=== PATIENT | male | born 1990 | race Caucasian/White ===

== ENCOUNTER 2020-04-16 11:45 | Emergency (ER) | payer OTHER, SELFPAY ==
[2020-04-16 12:11] LABS: #Basophils 0.1 thou/uL (0.0-0.2); #Eosinphils 0.5 thou/uL (0.0-0.7); #Monocytes 0.4 thou/uL (0.11-0.59); #Neutrophils 4.2 thou/uL (1.40-6.50); %Basophils 1.8 % (0.0-1.0); %Eosinophils 7.4 % (0.0-10.0); %Lymphocytes 27.3 % (21.0-51.0); %Monocytes 5.6 % (0.0-10.0); %Neutrophils 57.8 % (42.0-75.0); Hemoglobin 14.4 g/dL (14.0-18.0); Mean Corpuscular HGB CONC 32.2 g/dL (32.0-36.0); Mean Corpuscular Hemoglobin 30.6 pg (27.0-31.0); Mean Platelet Volume 6.2 fL (7.4-10.4); Platelet Count 270 thou/uL (130-400); RBC Distribution Width 11.6 % (11.5-14.5); Red Blood Cell (RBC) Count 4.71 mill/uL (4.70-6.10); White Blood Cell (WBC) Count 7.3 thou/uL (4.8-10.8)
--- NOTE | 2020-04-16 12:18 | RAD ---
Chest AP view INDICATION: Chest pain COMPARISON: None FINDINGS: Lungs: The lungs are clear Cardiac silhouette: The cardiomediastinal silhouette appears within normal limits. Pulmonary vasculature: Normal Pleural spaces: No pleural effusion or pneumothorax is demonstrated. Upper abdomen: No abnormality seen. Osseous structures: No acute osseous abnormality. Additional findings: None. IMPRESSION: No acute cardiopulmonary abnormality.
[2020-04-16 12:30] LABS: ALT (SGPT) 33 U/L (8-55); AST (SGOT) 41 U/L (5-34); Albumin 4.3 g/dL (3.5-5.0); Alkaline Phosphatase 46 U/L (40-110); Anion Gap 14 mmol/L (10-20); BUN (Urea Nitrogen) 23 mg/dL (8.9-20.6); Bilirubin, Total 0.5 mg/dL (0.2-1.2); CK (CPK) 585 U/L (30-200); Calc. Creatinine Clearance 0 mL/min (70-130); Carbon Dioxide 24 mmol/L (22-29); Chloride 105 mmol/L (98-107); Estimated GFR-MDRD 57; Globulin 2.5 g/dL (2.4-3.5); Glucose 94 mg/dL (70-105); Potassium 4.3 mmol/L (3.5-5.1); Protein, Total 6.8 g/dL (6.0-8.3); Sodium 139 mmol/L (136-145)
== END 2020-04-16 13:30 | disposition home or self-care (01) ==
LOC: MADERS 11:45
DX: M62.82 Rhabdomyolysis (principal); E86.0 Dehydration; Z87.891 Personal history of nicotine dependence
CPT/HCPCS: 71045; 80053; 82550; 82553; 84484; 85025; 86140; 93005; 94760

== ENCOUNTER 2021-06-12 07:03 | Emergency (ER) | payer SELFPAY ==
[2021-06-12] MEDS ORDERED: Ketorolac Tromethamine 30 MG/ML VIAL ONE (07:39)
[2021-06-12] MEDS ORDERED: Ondansetron PF 4 MG/2 ML Vial ONE (07:39)
== END 2021-06-12 07:59 | disposition home or self-care (01) ==
LOC: MADERS 07:03
DX: G89.18 Other acute postprocedural pain (principal); F10.129 Alcohol abuse with intoxication, unspecified; Z87.891 Personal history of nicotine dependence
CPT/HCPCS: 96374; 96375; J1885; J2405

== ENCOUNTER 2021-06-13 21:55 | Emergency (ER) | payer SELFPAY ==
[2021-06-13] MEDS ORDERED: Lidocaine 4% Cream 5 GM TUBE w/ Tegaderm ONE (22:42)
[2021-06-13] MEDS ORDERED: Ketorolac Tromethamine 60 MG/2 ML VIAL ONE (23:02)
== END 2021-06-13 23:15 | disposition home or self-care (01) ==
LOC: MADERS 21:55
DX: G89.18 Other acute postprocedural pain (principal); Z87.891 Personal history of nicotine dependence
CPT/HCPCS: 96372; 99283; J1885